=== PATIENT | female | born 1980 | race Two or more races ===

== ENCOUNTER 2017-03-05 05:28 | Day surgery (SDC) | payer MEDICAID ==
[2017-03-04 09:58] VITALS: BMI 32.9
[2017-03-05] VITALS (15 sets, daily range): BP systolic 95–123; BP diastolic 56–85; PULSE 50–70; RESP 12–23; Ht 162.6 cm; Wt 84.0 kg
[~2017-03-05] VITALS: Ht 162.6 cm; Wt 84.0 kg
[2017-03-05] MEDS ORDERED: LACTATED RINGER'S 1,000 ML IV SCH (05:30)
[2017-03-05 06:14] LABS: ADD SCAN DIFF NO
[2017-03-05 06:16] LABS: BASOPHIL # 0.1 10^3/ul (0.0-0.1); BASOPHILS % 0.5 % (0.0-2.0); EOSINOPHILS # 0.5 10^3/ul (0.0-0.5); EOSINOPHILS % 5.6 % (0.0-7.0); HEMATOCRIT 36.5 % (37.0-47.0); LYMPHOCYTES # 2.6 10^3/ul (0.8-2.9); LYMPHOCYTES % 26.5 % (15.0-51.0); MEAN CORPUSCULAR HEMOGLOBIN 29.2 pg (29.0-33.0); MEAN CORPUSCULAR HGB CONC 32.9 g/dl (32.0-37.0); MEAN CORPUSCULAR VOLUME 88.8 fl (82.0-101.0); MEAN PLATELET VOLUME 11.1 fl (7.4-10.4); MONOCYTE # 0.7 10^3/ul (0.3-0.9); MONOCYTES % 7.6 % (0.0-11.0); NEUTROPHIL # 5.8 10^3/ul (1.6-7.5); NEUTROPHILS % 59.3 % (39.0-77.0); PLATELET COUNT 310 10^3/UL (140-415); RED BLOOD COUNT 4.11 10^6/ul (4.20-5.40); RED CELL DISTRIBUTION WIDTH 13.6 % (11.5-14.5); WHITE BLOOD COUNT 9.7 10^3/ul (4.8-10.8)
--- NOTE | 2017-03-05 07:12 | PREOPHP ---
DATE OF ADMISSION: 03/05/2017 HISTORY OF PRESENT ILLNESS: Ms. Kathya Fermin is a 36-year-old 4, para 3, desires permanent surgical sterilization. PAST MEDICAL HISTORY: Hypertension, proteinuria. MEDICATIONS: None. PAST SURGICAL HISTORY: Times 1 previous , x2 vaginal deliveries, x1 missed AB. GYNECOLOGIC HISTORY: [age], regular 3 to 4 days. Denies any sexually transmitted diseases. Sexua lly active with 1 partner. SOCIAL HISTORY: Denies any smoking, drugs, or alcohol. FAMILY HISTORY: None. PHYSICAL EXAMINATION: HEENT: Within normal. LUNGS: CTA bilateral. CARDIOVASCULAR: S1, S2, regular rate, rhythm. ABDOMEN: Soft, nontender. Negative distention. EXTREMITIES: Negative edema. No calf tenderness. VAGINAL: Normal external genitalia. Cervix: Negative CMT, negative lesions. Adnexa: Negative ma ss, nontender. Bilateral fundus within normal limits. ASSESSMENT: Multiparity, desires permanent surgical sterilization. PLAN: Consent for hysteroscopic tubal occlusion known as Essure implant with possible laparoscopic bilateral tubal sterilization. Risks, benefits, and alternatives explained. All questions were ans wered. Dictated By: IRISH CABRERA/RAYRAY Conf#: [id number] DID#: [id number]
[2017-03-05] MEDS ORDERED: MIDAZOLAM 1 MG/ML 2 ML INJ ONE (07:30)
[2017-03-05] MEDS ORDERED: FENTAnyl 50 MCG/ML VIAL ONE (07:30)
[2017-03-05] MEDS ORDERED: PROPOFOL 100 ML ONE (07:31)
[2017-03-05] MEDS ORDERED: KETOROLAC 30 MG INJ ONE (07:47)
[2017-03-05] MEDS ORDERED: ONDANSETRON 4 MG INJ ONE (07:53)
[2017-03-05] MEDS ORDERED: DEXAMETHASONE 4 MG/ML 1 ML INJ ONE (07:53)
--- NOTE | 2017-03-05 08:12 | PDOCDIS ---
Discharge Instructions CONDITION Patient Condition: Good HOME CARE INSTRUCTIONS: Diet Instructions: Regular ACTIVITY: Activity Restrictions Comment: non per vagina FOLLOW UP/APPOINTMENTS Appointments 2 weeks SCHOOL/WORK RELEASE May return to School/Work with: No Restrictions IRISH MCCLELLAN MD March 05, 2017 08:11
[2017-03-05] MEDS ORDERED: MEPERIDINE 25 MG INJ IV PRN (08:30)
[2017-03-05] MEDS ORDERED: DIPHENHYDRAMINE 50 MG INJ IV PRN (08:30)
[2017-03-05] MEDS ORDERED: EPHEDrine SULFATE 50 MG/5 ML SYG IV PRN (08:30)
[2017-03-05] MEDS ORDERED: FENTAnyl 50 MCG/ML VIAL IV PRN ×3 (08:30)
[2017-03-05] MEDS ORDERED: ONDANSETRON 4 MG INJ IV PRN (08:30)
[2017-03-05] MEDS ORDERED: LABETALOL HCL 20MG INJ IV PRN (08:30)
[2017-03-05] MEDS ORDERED: hydrALAzine 20 MG INJ IV PRN (08:30)
--- NOTE | 2017-03-05 09:16 | OPPN ---
Date/Time of Note Date/Time of Note DATE: 03/05/17 TIME: 09:16 Post-Anesthesia Notes Post-Anesthesia Note Last documented vital signs Vital Signs Date Time Temp Pulse Resp B/P Pulse Ox O2 Delivery O2 Flow Rate FiO2 03/05/17 09:03 56 19 119/75 97 Room Air 03/05/17 08:21 98.4 Activity: WNL Respiratory function: WNL Cardiovascular function: WNL Mental status: Baseline Pain reasonably controlled: Yes Hydration appropriate: Yes Nausea/Vomiting absent: Yes MORRIS HARPER March 05, 2017 09:16
[2017-03-05] MEDS ORDERED: IBUPROFEN 600 MG TAB PO ONE (10:30)
--- NOTE | 2017-03-05 16:37 | OPR ---
DATE OF OPERATION: 03/05/2017 PREOPERATIVE DIAGNOSIS: Multiparity desires permanent surgical sterilization. POSTOPERATIVE DIAGNOSIS: Multiparity, desires permanent surgical sterilization. OPERATION PERFORMED: Hysteroscopic tubal occlusion, also known as Essure. SURGEON: IRISH MCCLELLAN MD. FINAL FINISHER FORGING DIES: None. FINDINGS: Bimanual size within normal, position anteverted. Hysteroscopic view of the uterus, adeq uate. [place] normal. Adhesion absent. Placement of 3 trailing coils on the left and 3 trailing coi ls on the right. ESTIMATED BLOOD LOSS: Minimal. SPECIMEN: None. COMPLICATIONS OF PROCEDURE: None. TYPE OF ANESTHESIA: General. DESCRIPTION OF PROCEDURE: After explaining the risks, benefits and alternatives, the patient and co nsent signed in chart. The patient was taken to the operating room where general anesthesia was obt ained without difficulty. The patient was then examined under anesthesia and found to have a small anteverted uterus with normal adnexa. She was then placed in a dorsal lithotomy position and prepar ed and draped in normal sterile fashion. A heavy weighted speculum was then placed in the patient's vagina and the anterior lip of the cervix was grasped with a single tooth tenaculum. A hysteroscop e was then entered into the uterine cavity and findings noted above. Both tubal ostia were identifi ed. The delivery catheter was then inserted into the tubal ostia up to the black marker. The deliv theresa catheter was retracted and the device deployed. After 10 seconds, the catheter was detached fro m the device. The device was in good position with 3 trailing coils on the right side. The procedu re was repeated on the left side with 3 trailing coils. The procedure was completed. All instrumen ts were removed from the patient's vagina. The patient tolerated procedure well. All counts were c orrect x2. Before discharge, the patient was given a prescription for hysterosalpingogram in 3 christian hs and control use until hysteroscopic salpingogram shows tubal occlusion. The lot # for the implant is [id number]. Dictated By: IRISH CABRERA/RAYRAY Conf#: [id number] DID#: [id number]
== END 2017-03-05 10:27 | disposition home or self-care (01) ==
LOC: SDS 05:28
PROVIDERS: ATTEND Obstetrics & Gynecology
DX: Z30.2 Encounter for sterilization (principal)
CPT/HCPCS: 58565; 85025; 86850; 86900; 86901; A4264; J1100; J1885; J2250; J2405; J3010; Z7512; Z7610